=== PATIENT | female | born 1955 | race Caucasian/White ===

== ENCOUNTER → 2020-03-31 | Outpatient (CLI) | payer BC | END | disposition home or self-care (01) | LOC: LAB SHORT 11:52 → PLD 11:52 | DX: D22.62 Melanocytic nevi of left upper limb, including shoulder (principal) | CPT/HCPCS: 88305; 88342 ==

== ENCOUNTER → 2020-04-28 | Outpatient (CLI) | payer BC | END | disposition home or self-care (01) | LOC: LAB SHORT 07:48 → PLD 07:48 | DX: D22.62 Melanocytic nevi of left upper limb, including shoulder (principal) | CPT/HCPCS: 88305 ==

== ENCOUNTER → 2021-02-02 | Outpatient (CLI) | payer BC | LOC: LAB SHORT 14:39 → LAB 14:39 | DX: D48.5 Neoplasm of uncertain behavior of skin (principal) | CPT/HCPCS: 88305 ==

== ENCOUNTER → 2021-06-20 | Outpatient (CLI) | payer BC ==
[2021-06-21 13:00] LABS: Stool Occult Bld Immuno 1 Negative (NEGATIVE)
== END | disposition home or self-care (01) ==
LOC: LAB SHORT 17:30
PROVIDERS: Family Medicine
DX: Z12.11 Encounter for screening for malignant neoplasm of colon (principal)
CPT/HCPCS: G0328

== ENCOUNTER 2024-08-09 07:43 | Day surgery (SDC) | payer OTHER ==
[~2024-08-09] VITALS: Ht 160 cm; Wt 84.9 kg
[~2024-08-09 07:43] MED LIST: ASPI81CH PO; MULVITA PO; OMEGA 3 PO; Percocet 5-3251 EACH PO; VITAMIN D310 MC4 PO; [UNRECOGNIZED DRUG - OTHER] PO
[2024-08-09] MEDS ORDERED: propofoL 50 ML IV ONE (08:07)
[2024-08-09] MEDS ORDERED: Lactated Ringer's 1,000 ML IV ONE ×2 (08:07→08:29)
[2024-08-09 09:46] VITALS: BP 126/77
== END 2024-08-09 10:00 | disposition home or self-care (01) ==
LOC: ORSCSDS 07:43
PROVIDERS: Surgery
PROC: 0DBH8ZX Excision of Cecum, Via Natural or Artificial Opening Endoscopic, Diagnostic (ICD-10-PCS; principal; 2024-08-09 09:15)
DX: Z12.11 Encounter for screening for malignant neoplasm of colon (principal); K63.5 Polyp of colon; K57.30 Diverticulosis of large intestine without perforation or abscess without bleeding
CPT/HCPCS: 88305; J2704; J7120